=== PATIENT | female | born 1990 | race Two or more races ===

== ENCOUNTER 2022-02-25 13:11 | Inpatient (IN) | payer OTHER ==
[2022-02-25] MEDS ORDERED: LACTATED RINGERS SOLUTION 1,000 ML IV ONE (14:00)
[2022-02-25 15:34] LABS: URINE APPEARANCE CLEAR; URINE BILIRUBIN NEGATIVE (NEGATIVE); URINE COLOR YELLOW; URINE GLUCOSE (UA) NEGATIVE (NEGATIVE); URINE KETONE NEGATIVE (NEGATIVE); URINE LEUK ESTERASE NEGATIVE (NEGATIVE); URINE NITRITE NEGATIVE (NEGATIVE); URINE PROTEIN NEGATIVE (NEGATIVE); URINE UROBILINOGEN 0.2 mg/dL (0.2-1.0)
[2022-02-25 15:42] LABS: ACTIVATED PTT 29.6 SECONDS (25.2-36.5)
[2022-02-25 15:43] VITALS: BMI 37.5
[2022-02-25] MEDS ORDERED: DEXTROSE 5%-LACTATED RINGERS 1,000 ML IV SCH (15:45)
[2022-02-25 15:49] LABS: INR 0.89 (0.83-1.09); PROTHROMBIN TIME (PATIENT) 10.2 SEC (9.7-13.0)
[2022-02-25 16:04] LABS: CALCIUM 8.9 mg/dL (8.5-10.1)
[2022-02-25 16:05] LABS: BLOOD UREA NITROGEN 9.1 mg/dL (7-18)
[2022-02-25 16:08] LABS: CREATININE 0.6 mg/dL (0.55-1.3)
[2022-02-25 16:13] LABS: URIC ACID 4.3 mg/dL (2.6-7.2)
[2022-02-25 16:25] LABS: HEMOGLOBIN 12.3 GM/dL (10.7-15.3); MCHC 34.2 g/dl (32.0-36.0); MEAN CELL VOLUME 90.9 fl (80-96); MEAN PLT VOLUME 10.1 fl (7.5-11.1); PLATELET COUNT 204 10^3/uL (134-434); RBC 3.96 M/mm3 (3.60-5.2); RDW 14.5 % (11.6-15.6); RETICULOCYTES 3.19 % (0.5-1.5); WHITE BLOOD COUNT 8.1 K/mm3 (4.0-10.0)
[2022-02-25] MEDS ORDERED: DINOPROSTONE 10 MG VAGINAL SUPPOSITORY VG ONE (17:45)
[2022-02-25] MEDS ORDERED: PROMETHAZINE HCL 25 MG/1 ML VIAL IVPUSH ONE (17:46)
[2022-02-25] MEDS ORDERED: BUTORPHANOL TARTRATE 2 MG/ML VIAL IVPUSH PRN (17:46)
[2022-02-25 18:14] LABS: ANISOCYTOSIS 0; MACROCYTOSIS 0
[2022-02-26] MEDS ORDERED: ELECTROLYTE-148 SOLN 1,000 ML IV SCH ×2 (07:30→11:00)
[2022-02-26] MEDS ORDERED: CITRIC ACID/SODIUM CITRATE 30 ML UNIT-DOSE CUP PO ONE (10:35)
[2022-02-26] MEDS ORDERED: ELECTROLYTE-148 SOLN 1,000 ML IV ONE (11:00)
[2022-02-26] MEDS ORDERED: IBUPROFEN 800 MG/8 ML IJ IVPB PRN (13:00)
[2022-02-26] MEDS ORDERED: OXYTOCIN 30 UNITS in 0.9% NS 30 UNIT/500 ML INFUS.BAG IVPB ONE (13:17)
[2022-02-26] MEDS ORDERED: ceFAZolin SODIUM 1 GM VIAL ONE (13:18)
[2022-02-26] MEDS ORDERED: ONDANSETRON 4 MG/2 ML VIAL ONE (13:18)
[2022-02-26] MEDS ORDERED: METOCLOPRAMIDE HCL INJECTION 10 MG/2 ML VIAL ONE (13:18)
[2022-02-26] MEDS ORDERED: morphine SULFATE (PF) 1 MG/2 ML SYRINGE ONE (13:52)
[2022-02-26] MEDS ORDERED: FENTANYL CITRATE/PF 50 MCG/ML VIAL ONE (13:52)
[2022-02-26] MEDS ORDERED: morphine SULFATE/PF 1 MG/2 ML (2cc Syringe - QUVA) IT ONE (14:03)
[2022-02-26] MEDS ORDERED: OXYTOCIN 20 UNITS in 0.9% NS 20 UNIT/1,000 ML INFUS.BAG IV ONE (15:05)
[2022-02-26] MEDS: OXYTOCIN 20 UNITS in 0.9% NS 20 UNIT/1,000 ML INFUS.BAG IV SCH ×2 (15:15→23:54)
[2022-02-26] MEDS ORDERED: MISOPROSTOL 200 MCG TABLET PV ONE (15:15)
[2022-02-26] MEDS ORDERED: ONDANSETRON 4 MG/2 ML VIAL IVPUSH PRN (15:20)
[2022-02-26 16:04] LABS: CORD BASE EXCESS -4.3 mmol/L (0-2); CORD PCO2 44.6 mmHg (30-78); CORD pH 7.311 (7.14-7.44)
[2022-02-26 16:12] LABS: CORD BASE EXCESS -7.3 mmol/L (0-2); CORD HCO3 19.3 mmHg (20-29); CORD PCO2 43.2 mmHg (30-78); CORD pH 7.269 (7.14-7.44)
[2022-02-27] MEDS: SIMETHICONE 80 MG TAB.CHEW (FP) PO PRN ×4 (02:09→23:14)
[2022-02-27] MEDS: ACETAMINOPHEN 325 MG TABLET (FP) PO PRN ×2 (02:10→10:10)
[2022-02-27 07:50] LABS: BASO % 0.2 % (0-2.0); EOS % 0.3 % (0-4.5); HEMATOCRIT 30.4 % (32.4-45.2); HEMOGLOBIN 10.4 GM/dL (10.7-15.3); LYMPH % 14.3 % (8-40); MCH 30.7 pg (25.7-33.7); MCHC 34.1 g/dl (32.0-36.0); MEAN CELL VOLUME 90.1 fl (80-96); MEAN PLT VOLUME 9.1 fl (7.5-11.1); MONO % 6.3 % (3.8-10.2); NEUT % 78.9 % (42.8-82.8); PLATELET COUNT 160 10^3/uL (134-434); RBC 3.38 M/mm3 (3.60-5.2); RDW 14.6 % (11.6-15.6); WHITE BLOOD COUNT 11.4 K/mm3 (4.0-10.0)
[2022-02-27] MEDS: IBUPROFEN 600 MG TABLET (FP) PO PRN ×3 (09:23→23:14)
[2022-02-27] MEDS ORDERED: FLU VACC QS2022-23(6MOS UP)/PF 60 MCG/0.5 ML SYRINGE IM ONE (10:00)
[2022-02-27] MEDS ORDERED: DIPHTH,PERTUSS(ACELL),TET 0.5 ML DISP.SYRIN IM ONE (10:00)
[2022-02-27] MEDS ORDERED: oxyCODONE HCL 5 MG TABLET PO PRN (13:00)
[2022-02-27] MEDS ORDERED: BISACODYL 10 MG SUPP.RECT RC PRN (13:01)
[2022-02-28] MEDS: SIMETHICONE 80 MG TAB.CHEW (FP) PO PRN ×3 (09:38→21:05)
[2022-02-28] MEDS: ACETAMINOPHEN 325 MG TABLET (FP) PO PRN (09:38)
[2022-02-28] MEDS: IBUPROFEN 600 MG TABLET (FP) PO PRN (16:57)
[2022-03-01] MEDS: SIMETHICONE 80 MG TAB.CHEW (FP) PO PRN (08:21)
[2022-03-01] MEDS: IBUPROFEN 600 MG TABLET (FP) PO PRN (08:21)
[2022-03-01 09:45] LABS: HEMATOCRIT 29.6 % (32.4-45.2); HEMOGLOBIN 10.3 GM/dL (10.7-15.3); MCH 31.5 pg (25.7-33.7); MCHC 34.6 g/dl (32.0-36.0); MEAN CELL VOLUME 91.1 fl (80-96); MEAN PLT VOLUME 8.6 fl (7.5-11.1); PLATELET COUNT 241 10^3/uL (134-434); RBC 3.25 M/mm3 (3.60-5.2); RDW 15.2 % (11.6-15.6); WHITE BLOOD COUNT 9.4 K/mm3 (4.0-10.0)
[2022-03-01 10:38] VITALS: BP 127/72; PULSE 70; RESP 16; TEMP 97.3
== END 2022-03-01 15:05 | disposition home or self-care (01) | DRG 540 ==
LOC: JDEL 13:11 → JLDR 14:00 → J3W 02-26 16:57
PROVIDERS: ADMIT Obstetrics & Gynecology; ATTEND Student in an Organized Health Care Education/Training Program
PROC: 10D00Z1 Extraction of Products of Conception, Low, Open Approach (ICD-10-PCS; principal; 2022-02-26)
DX: O14.94 Unspecified pre-eclampsia, complicating childbirth (principal); O36.63X0 Maternal care for excessive fetal growth, third trimester, not applicable or unspecified; O48.0 Post-term pregnancy; Z3A.40 40 weeks gestation of pregnancy; O99.213 Obesity complicating pregnancy, third trimester; O24.429 Gestational diabetes mellitus in childbirth, unspecified control; Z37.0 Single live birth
CPT/HCPCS: 36415; 36600; 76819-TC; 80048; 81003; 82570; 82803; 82977; 83010; 84156; 84450; 84460; 84550; 85025; 85045; 85610; 85730; 86780; 86850; 86900; 86901; 88307-TC; 90715; C9803-CS; G0008; Q2036; U0003; U0005